=== PATIENT | male | born 1965 | race Caucasian/White ===

== ENCOUNTER 2024-05-08 17:27 | Emergency (ER) | payer BC ==
[2024-05-08 17:53] VITALS: PULSE 62
[2024-05-08] MEDS: Lidocaine 1% 10 ML MDV INJECT ONE (19:13)
[2024-05-08] MEDS: Diphtheria,Pertussis(Acell),Tetanus Vaccine 0.5 ML Syringe IM ONE (19:14)
[2024-05-08 19:42] VITALS: BP 151/103
== END 2024-05-08 19:42 | disposition home or self-care (01) ==
LOC: JD.ED 17:27
DX: S51.812A Laceration without foreign body of left forearm, initial encounter (principal); Z79.899 Other long term (current) drug therapy; W22.8XXA Striking against or struck by other objects, initial encounter; Z23 Encounter for immunization
CPT/HCPCS: 12002; 90471; 90715; 99282-25; 99283; J3490